=== PATIENT | male | born 1985 | race Caucasian/White ===

== ENCOUNTER → 2020-02-08 | Outpatient (CLI) | payer BC ==
[2020-02-08 17:05] LABS: African American GFR (CKD) 113.3 (60.0-200.0); Calcium 10.1 mg/dL (8.7-10.3); Non-African American GFR(CKD) 97.8 (60.0-200.0)
[2020-02-08 17:53] LABS: Hemoglobin A1C 5.1 % (4.0-6.0)
== END | disposition home or self-care (01) ==
LOC: LABWHC1 09:00
PROVIDERS: ATTEND Internal Medicine
DX: E11.9 Type 2 diabetes mellitus without complications (principal)
CPT/HCPCS: 36415; 80048; 83036

== ENCOUNTER → 2020-04-21 | Outpatient (CLI) | payer BC | END | disposition home or self-care (01) | LOC: LABWHC1 15:32 | PROVIDERS: ATTEND Psychiatry & Neurology Pain Medicine | DX: R20.2 Paresthesia of skin (principal); R53.1 Weakness | CPT/HCPCS: 36415; 82040; 82042; 82784; 83916 ==

== ENCOUNTER 2020-12-23 14:21 | Emergency (ER) | payer BC ==
[2020-12-23 14:26] VITALS: RESP 18; TEMP 97.3
--- NOTE | 2020-12-23 15:00 | ED ---
Abdominal Pain HPI - General Chief Complaint: Abdominal Pain Stated Complaint: L left Abd pain Time Seen by Provider: 12/23/20 14:34 Source: patient, RN notes reviewed, old records reviewed Mode of arrival: ambulatory Limitations: no limitations - History of Present Illness Initial Comments: 35-year-old male patient comes to the emergency room with complaints of left lower quadrant abdominal pain since yesterday. Patient states that he did have diarrhea yesterday with some chills and then today developed worsening left lower quadrant pain decreased appetite. Patient states that he has had irritable bowel symptoms in the past and similar pain when he had appendicitis. Patient had an appendectomy. He believes he may have irritable bowel syndrome. he denies any hematochezia or hematemesis. Denies dysuria. States had a normal bowel movement today soft. Denies testicular pain or dysuria. Patient is a pack-a-day smoker but has been on Chantix and has only had 2 cigarettes today. Patient is well-appearing, and oriented 4. Denies any other medical history and no other medications on a daily basis. Patient denies family history of co scotty cancer. MD Complaint: abdominal pain -: days(s) (1) Location: LLQ Radiation: none Migration to: no migration Severity scale (1-10): 6 Associated Symptoms: chills, anorexia - Related Data Previous Rx's Medication Instructions Recorded Tamsulosin [Flomax] 0.4 mg PO DAILY #7 cap 12/23/20 Allergies Allergy/AdvReac Type Severity Reaction Status Date / Time No Known Allergies Allergy Verified 12/23/20 14:25 Review of Systems ROS Statement: Those systems with pertinent positive or pertinent negative responses have been documented in the HPI. ROS Other: All systems not noted in ROS Statement are negative. Past Medical History Past Medical History: No Reported History History of Any Multi-Drug Resistant Organisms: None Reported Past Surgical History: Adenoidectomy, Appendectomy, Tonsillectomy Past Psychological History: No Psychological Hx Reported Smoking Status: Former smoker Past Alcohol Use History: None Reported Past Drug Use History: None Reported General Exam Limitations: no limitations General appearance: alert, in no apparent distress Head exam: Present: atraumatic, normocephalic, normal inspection Eye exam: Present: normal appearance, PERRL, EOMI. Absent: scleral icterus, conjunctival injection, periorbital swelling Pupils: Present: normal accommodation ENT exam: Present: normal exam, normal oropharynx, mucous membranes moist, TM's normal bilaterally Neck exam: Present: normal inspection, full ROM. Absent: tenderness, meningismus, lymphadenopathy, thyromegaly Respiratory exam: Present: normal lung sounds bilaterally. Absent: respiratory distress, wheezes, rales, rhonchi, stridor, chest wall tenderness, accessory muscle use, decreased breath sounds Cardiovascular Exam: Present: regular rate, normal rhythm, normal heart sounds. Absent: systolic murmur, diastolic murmur, rubs, gallop, clicks GI/Abdominal exam: Present: soft, tenderness (Left lower quadrant), normal bowel sounds. Absent: distended, guarding, rebound, rigid, mass, pulsatile mass, hernia Rectal exam: Present: deferred Extremities exam: Present: normal inspection, full ROM, normal capillary refill. Absent: tenderness, pedal edema, joint swelling, calf tenderness Back exam: Present: normal inspection, full ROM. Absent: tenderness, CVA tenderness (R), CVA tenderness (L), muscle spasm, paraspinal tenderness, vertebral tenderness, rash noted Neurological exam: Present: alert, oriented X3, CN II-XII intact Psychiatric exam: Present: normal affect, normal mood Skin exam: Present: warm, dry, intact, normal color. Absent: rash, cyanosis, diaphoretic, erythema, petechiae, pallor, mottled Course Vital Signs 12/23/20 14:23 Temperature 97.3 F L Pulse Rate 84 Respiratory 18 Rate Blood Pressure 149/95 O2 Sat by Pulse 98 Oximetry Medical Decision Making - Medical Decision Making CT shows a 3 mm obstructing calculus in the left proximal ureter with mild hydronephrosis. There is a cluster of small multiple nonobstructing left renal calculi in the left lower pole measuring 6 mm but no hydronephrosis or nephrolithiasis. Patient does have left flank pain that has radiated into his left testicle but has resolved since he just used the bathroom. There is also noted retroperitoneal and pelvic lymphadenopathy noted inguinal chain and p atient will be referred to his primary care doctor to reassess to make sure is not reactive to the kidney stone. Patient has no pain at this time will be prescribed Flomax directed to take Motrin as needed for pain increase fluid intake. Patient advised to return to the emergency room with worsening symptoms, fever, nausea vomiting or diarrhea or increasing pain. Case discussed with Dr. Dietz - Lab Data Result diagrams: 12/23/20 15:00 12/23/20 15:00 Lab Results 12/23/20 12/23/20 12/23/20 Range/Units 15:00 15:00 15:00 WBC 9.5 (3.8-10.6) k/uL RBC 4.83 (4.30-5.90) m/uL Hgb 15.4 (13.0-17.5) gm/dL Hct 43.3 (39.0-53.0) % MCV 89.7 (80.0-100.0) fL MCH 31.8 (25.0-35.0) pg MCHC 35.5 (31.0-37.0) g/dL RDW 12.2 (11.5-15.5) % Plt Count 200 (150-450) k/uL MPV 7.5 Neutrophils % 91 % Lymphocytes % 4 % Monocytes % 4 % Eosinophils % 0 % Basophils % 0 % Neutrophils # 8.7 H (1.3-7.7) k/uL Lymphocytes # 0.4 L (1.0-4.8) k/uL Monocytes # 0.4 (0-1.0) k/uL Eosinophils # 0.0 (0-0.7) k/uL Basophils # 0.0 (0-0.2) k/uL PT 10.5 (9.0-12.0) sec INR 1.0 (<1.2) APTT 22.1 (22.0-30.0) sec Sodium (137-145) mmol/L Potassium (3.5-5.1) mmol/L Chloride (98-107) mmol/L Carbon Dioxide (22-30) mmol/L Anion Gap mmol/L BUN (9-20) mg/dL Creatinine (0.66-1.25) mg/dL Est GFR (CKD-EPI)AfAm (>60 ml/min/1.73 sqM) Est GFR (CKD-EPI)NonAf (>60 ml/min/1.73 sqM) Glucose (74-99) mg/dL Plasma Lactic Acid Ravinder (0.7-2.0) mmol/L Calcium (8.4-10.2) mg/dL Total Bilirubin (0.2-1.3) mg/dL AST (17-59) U/L ALT (4-49) U/L Alkaline Phosphatase (38-126) U/L Total Protein (6.3-8.2) g/dL Albumin (3.5-5.0) g/dL Amylase (30-110) U/L Lipase (23-300) U/L Urine Color Yellow Urine Appearance Clear (Clear) Urine pH 6.5 (5.0-8.0) Ur Specific [place] 1.018 (1.001-1.035) Urine Protein Negative (Negative) Urine Glucose (UA) Negative (Negative) Urine Ketones Negative (Negative) Urine Blood Moderate H (Negative) Urine Nitrite Negative (Negative) Urine Bilirubin Negative (Negative) Urine Urobilinogen <2.0 (<2.0) mg/dL Ur Leukocyte Esterase Negative (Negative) Urine RBC 47 H (0-5) /hpf Urine WBC 4 (0-5) /hpf Urine Bacteria Rare H (None) /hpf Urine Mucus Rare H (None) /hpf 12/23/20 12/23/20 Range/Units 15:00 15:00 WBC (3.8-10.6) k/uL RBC (4.30-5.90) m/uL Hgb (13.0-17.5) gm/dL Hct (39.0-53.0) % MCV (80.0-100.0) fL MCH (25.0-35.0) pg MCHC (31.0-37.0) g/dL RDW (11.5-15.5) % Plt Count (150-450) k/uL MPV Neutrophils % % Lymphocytes % % Monocytes % % Eosinophils % % Basophils % % Neutrophils # (1.3-7.7) k/uL Lymphocytes # (1.0-4.8) k/uL Monocytes # (0-1.0) k/uL Eosinophils # (0-0.7) k/uL Basophils # (0-0.2) k/uL PT (9.0-12.0) sec INR (<1.2) APTT (22.0-30.0) sec Sodium 139 (137-145) mmol/L Potassium 5.0 (3.5-5.1) mmol/L Chloride 102 (98-107) mmol/L Carbon Dioxide 29 (22-30) mmol/L Anion Gap 8 mmol/L BUN 15 (9-20) mg/dL Creatinine 1.04 (0.66-1.25) mg/dL Est GFR (CKD-EPI)AfAm >90 (>60 ml/min/1.73 sqM) Est GFR (CKD-EPI)NonAf >90 (>60 ml/min/1.73 sqM) Glucose 113 H (74-99) mg/dL Plasma Lactic Acid Ravinder 1.3 (0.7-2.0) mmol/L Calcium 10.1 (8.4-10.2) mg/dL Total Bilirubin 0.6 (0.2-1.3) mg/dL AST 38 (17-59) U/L ALT 53 H (4-49) U/L Alkaline Phosphatase 87 (38-126) U/L Total Protein 7.3 (6.3-8.2) g/dL Albumin 4.8 (3.5-5.0) g/dL Amylase 68 (30-110) U/L Lipase 92 (23-300) U/L Urine Color Urine Appearance (Clear) Urine pH (5.0-8.0) Ur Specific [place] (1.001-1.035) Urine Protein (Negative) Urine Glucose (UA) (Negative) Urine Ketones (Negative) Urine Blood (Negative) Urine Nitrite (Negative) Urine Bilirubin (Negative) Urine Urobilinogen (<2.0) mg/dL Ur Leukocyte Esterase (Negative) Urine RBC (0-5) /hpf Urine WBC (0-5) /hpf Urine Bacteria (None) /hpf Urine Mucus (None) /hpf Disposition Clinical Impression: Kidney stone on left side, Lymphadenopathy, inguinal Disposition: HOME SELF-CARE Condition: Good Instructions (If sedation given, give patient instructions): Kidney Stones (ED), Lymphadenopathy (ED) Additional Instructions: Take medication as prescribed, increase fluid intake, return if worsening symptoms, ability to urinate, fevers, nausea vomiting. Follow-up with primary care doctor in 1 week regarding the lymphadenopathy the left groin. Follow-up with urology for kidney stones as referred. Prescriptions: Tamsulosin [Flomax] 0.4 mg PO DAILY #7 cap Is patient prescribed a controlled substance at d/c from ED?: No Referrals: Elham Paredes MD [Primary Care Provider] - 1-2 days Jovani Ha MD [STAFF PHYSICIAN] - 1-2 days Time of Disposition: 16:50
[2020-12-23 15:16] LABS: Basophils % (A) 0 %; Eosinophils % (A) 0 %; HCT 43.3 % (39.0-53.0); HGB 15.4 gm/dL (13.0-17.5); Lymphocytes # (A) 0.4 k/uL (1.0-4.8); Lymphocytes % (A) 4 %; MCH 31.8 pg (25.0-35.0); MCHC 35.5 g/dL (31.0-37.0); MCV 89.7 fL (80.0-100.0); Mean Platelet Volume 7.5; Monocytes # (A) 0.4 k/uL (0-1.0); Monocytes % (A) 4 %; Neutrophils # (A) 8.7 k/uL (1.3-7.7); Neutrophils % (A) 91 %; Platelet Count 200 k/uL (150-450); RBC 4.83 m/uL (4.30-5.90); RDW 12.2 % (11.5-15.5); WBC 9.5 k/uL (3.8-10.6)
[2020-12-23 15:18] LABS: Appearance,Urine Clear (Clear); Bacteria,Urine Rare /hpf; Bilirubin,Urine Negative (Negative); Blood,Urine Moderate (Negative); Color,Urine Yellow; Glucose,Urine (UA) Negative (Negative); Ketones,Urine Negative (Negative); Leukocyte Esterase,Urine Negative (Negative); Mucus,Urine Rare /hpf; Nitrite,Urine Negative (Negative); PH, Urine 6.5 (5.0-8.0); Protein,Urine Negative (Negative); RBC,Urine 47 /hpf (0-5); Specific Gravity,Urine 1.018 (1.001-1.035); Urobilinogen,Urine <2.0 mg/dL (<2.0); WBC,Urine 4 /hpf (0-5)
[2020-12-23 15:33] LABS: Partial Thromboplastin Time 22.1 sec (22.0-30.0); Prothrombin Time 10.5 sec (9.0-12.0)
--- NOTE | 2020-12-23 15:48 | CT ---
EXAMINATION TYPE: CT abdomen pelvis w con DATE OF EXAM: 12/23/2020 COMPARISON: None available. HISTORY: LLQ pain with nausea. CT DLP: 1627.3 mGycm Automated exposure control for dose reduction was used. TECHNIQUE: Helical acquisition of images was performed from the lung bases through the pelvis. CONTRAST: Performed without Oral Contrast and with IV Contrast, patient injected with 100 mL of Isovue 300. FINDINGS: LUNG BASES: No significant abnormality is appreciated. LIVER/GB: No acute abnormality is appreciated. Hepatic steatosis. A 1 cm low attenuating right hepati c focus. PANCREAS: No significant abnormality is seen. SPLEEN: No significant abnormality is seen. ADRENALS: No significant abnormality is seen. KIDNEYS: 3 mm obstructing calculus in the left proximal ureter with resultant mild hydronephrosis. Ad ditional cluster of multiple small nonobstructing left renal calculus in the lower pole measuring 6 m m aggregate. No right hydronephrosis or nephrolithiasis. FREE AIR: No free air is visualized. RETROPERITONEAL ADENOPATHY: Innumerable enlarged retroperitoneal, iliac chain and inguinal lymph nod es with index lesion measuring up to 11 mm short axis. REPRODUCTIVE ORGANS: No significant abnormality is seen URINARY BLADDER: No significant abnormality is seen. PELVIC ADENOPATHY: None visualized. OSSEOUS STRUCTURES: No significant abnormality is seen. BOWEL: Nonspecific collapse colonic loops. No bowel obstruction, free air or fluid. OTHER: None IMPRESSION: 3 MM OBSTRUCTING LEFT PROXIMAL URETER WITH MILD HYDRONEPHROSIS. ADDITIONAL NONOBSTRUCTING LEFT RENAL CALCULI. RETROPERITONEAL AND PELVIC LYMPHADENOPATHY. CANNOT EXCLUDE LYMPHOMA. RECOMMEND CLINICAL AND LABORATOR Y CORRELATION.
[2020-12-23 15:50] LABS: ALT 53 U/L (4-49); AST 38 U/L (17-59); African American GFR (CKD) >90 (>60 ml/min/1.73 sqM); Albumin 4.8 g/dL (3.5-5.0); Alkaline Phosphatase 87 U/L (38-126); Amylase 68 U/L (30-110); Anion Gap 8 mmol/L; Blood Urea Nitrogen 15 mg/dL (9-20); Calcium 10.1 mg/dL (8.4-10.2); Carbon Dioxide 29 mmol/L (22-30); Chloride 102 mmol/L (98-107); Glucose 113 mg/dL (74-99); Lipase 92 U/L (23-300); Non-African American GFR(CKD) >90 (>60 ml/min/1.73 sqM); Sodium 139 mmol/L (137-145); Total Bilirubin 0.6 mg/dL (0.2-1.3); Total Protein 7.3 g/dL (6.3-8.2)
[2020-12-23] MEDS ORDERED: KETOROLAC 15 MG/ML 1 ML VIAL IVP STA (16:27)
[2020-12-23 17:12] VITALS: BP 153/94; PULSE 80
== END 2020-12-23 17:12 | disposition home or self-care (01) ==
LOC: EC 14:21
DX: N13.2 Hydronephrosis with renal and ureteral calculous obstruction (principal); R59.0 Localized enlarged lymph nodes; R63.0 Anorexia; R19.7 Diarrhea, unspecified; Z87.891 Personal history of nicotine dependence
CPT/HCPCS: 99284; 96374; 36415; 80053; 82150; 83605; 83690; 85025; 85610; 85730; 81001; 74177; J1885; Q9967